=== PATIENT | female | born 1975 | race Caucasian/White ===

== ENCOUNTER → 2017-10-28 | Outpatient (CLI) | payer OTHER ==
[~2017-10-28] MED LIST: ALBU90OI INH; ALBU90OI61 INH; ALPR.5 PO; ALPR1; AMOCLA500 PO; AZIT250 PO; DOXY100 PO; HYDACE10B PO; HYDACE5 PO; HYDGUAL120 PO; IBUP400 PO; IBUP800 PO; META800 PO; Macrobid 100 M100 MG PO; NAPR500 PO; OXYACE5T PO; PENVK500 PO; PROCODE120 PO; Pyridium200 MG PO; RXHYDACE PO; SULTRIDS PO; TRAM50 PO; [UNRECOGNIZED DRUG - OTHER]
== END | disposition home or self-care (01) ==
LOC: LAB SHORT 11:56 → LAB EV 11:56
DX: R30.0 Dysuria (principal)
CPT/HCPCS: 87077; 87086; 87186